=== PATIENT | male | born 1985 ===

== ENCOUNTER → 2024-07-11 | Day surgery (SDC) | payer OTHER ==
[~2024-07-11] MED LIST: LIDOCAINE 1% (10MG/ML) FOR IV START INTRADERMA PRN; PROPOFOL 10 MG/ML 20 ML VIAL IV ONE
[2024-07-11] MEDS: LACTATED RINGERS 1,000 ML IV ONE (11:02)
[2024-07-11 11:13] VITALS: RESP 16; TEMP 98.1
[2024-07-11] MEDS: LACTATED RINGERS 1,000 ML IV SCH (11:27)
--- NOTE | 2024-07-11 12:07 | P.PCN ---
Date of Procedure: 07/11/24 Procedure(s) Performed: BRIEF HISTORY: Patient is a 39-year-old [place] -[place] male scheduled for an elective sigmoidoscopy as a part of follow-up of colon polyps. He had a colonoscopy done by Dr. Harris at [facility] in April 2024 and was noted to have polyps in the descending colon and in the rectum. The polyp in the rectum was not removed completely and the biopsies revealed serrated adenoma. He is scheduled for a follow-up flexible sigmoidoscopy for complete polypectomy today. PROCEDURE PERFORMED: Flexible sigmoidoscopy with snare polypectomy PREOPERATIVE DIAGNOSIS: Follow-up colon polyps. IV sedation per Anesthesia. PROCEDURE: After informed consent was obtained, the patient, was brought into the endoscopy unit. IV sedation was administered by Anesthesia under continuous monitoring. Digital rectal examination was normal. Initially the Olympus CF-160 flexible video colonoscope was then inserted in the rectum, gradually advanced into the splenic flexure. Careful examination was performed. Prep was excellent. Mucosa of the descending colon, normal. The sigmoid colon there was a 3 mm polyp was removed by cold snare polypectomy. In the rectum there were 5 polyps measuring between 3 to 5 mm in size that were removed by cold snare polypectomy. Rest of the sigmoid colon, and rectum appeared normal. Retroflexion was performed in the rectum and no lesions were seen. The patient tolerated the procedure well. IMPRESSION: 3 mm sigmoid colon polyp status post cold snare polypectomy 3 mm to 5 mm x 5 rectal polyp status post cold snare polypectomy RECOMMENDATIONS: Findings of this examination were discussed with the patient as well as the family.. He was advised to follow with the biopsy results. Recommend repeat colonoscopy in 3 years.
[2024-07-11 12:31] VITALS: BP 121/78; PULSE 78
== END ==
LOC: ORWHC2ENDO 09:44
PROVIDERS: ATTEND Internal Medicine Gastroenterology
DX: K62.1 Rectal polyp (principal); K63.5 Polyp of colon; I10 Essential (primary) hypertension; F17.200 Nicotine dependence, unspecified, uncomplicated; Z79.899 Other long term (current) drug therapy; Z86.0100 Personal history of colon polyps, unspecified
CPT/HCPCS: 88305; 45338; J2704